=== PATIENT | male | born 1980 | race Caucasian/White ===

== ENCOUNTER 2019-01-02 10:36 | Emergency (ER) | payer OTHER ==
--- NOTE | 2019-01-02 11:03 | RAD ---
XR Chest 1 View Portable HISTORY: Chest pain COMPARISON: None FINDINGS: The heart size is normal. The lungs are well expanded without focal areas of consolidation, pneumothorax or pleural effusions. IMPRESSION: No radiographic evidence of acute cardiopulmonary process.
[2019-01-02] MEDS ORDERED: Nitroglycerin 0.4 MG TAB 1 EACH ONE (11:08)
[2019-01-02] MEDS ORDERED: Aspirin Chewable 81 MG TAB ONE (11:08)
[2019-01-02 11:19] LABS: PTT 28.4 SEC (22.9-36.1); Prothrombin Time 12.8 SEC (12.0-14.7)
[2019-01-02 11:29] LABS: Hemoglobin 15.7 g/dL (14.0-18.0); Mean Corpuscular HGB CONC 33.7 g/dL (32.0-36.0); Mean Corpuscular Hemoglobin 30.5 pg (27.0-31.0); Mean Corpuscular Volume 90.4 fL (78.0-98.0); Mean Platelet Volume 7.9 fL (7.4-10.4); Platelet Count 196 thou/uL (130-400); RBC Distribution Width 12.2 % (11.5-14.5); Red Blood Cell (RBC) Count 5.15 mill/uL (4.70-6.10); White Blood Cell (WBC) Count 7.3 thou/uL (4.8-10.8)
[2019-01-02 11:31] LABS: ALT (SGPT) 24 U/L (8-55); AST (SGOT) 19 U/L (5-34); Albumin 4.2 g/dL (3.5-5.0); Alkaline Phosphatase 54 U/L (40-150); Anion Gap 14 mmol/L (10-20); BUN (Urea Nitrogen) 6 mg/dL (8.9-20.6); Bilirubin, Total 0.3 mg/dL (0.2-1.2); Calc. Creatinine Clearance 0 mL/min (70-130); Calcium 8.8 mg/dL (7.8-10.44); Carbon Dioxide 22 mmol/L (22-29); Chloride 109 mmol/L (98-107); Estimated GFR-MDRD Greater than 90; Globulin 2.6 g/dL (2.4-3.5); Glucose 107 mg/dL (70-105); Potassium 3.9 mmol/L (3.5-5.1); Protein, Total 6.8 g/dL (6.0-8.3); Sodium 141 mmol/L (136-145)
[2019-01-02 11:38] LABS: Band 3 % (5-11); Eosinophils 1 % (0-10); Lymphocytes 27 % (21-51); MDiff Complete? YES; Monocytes 7 % (0-10); Neutrophil 60 % (42-75); Platelet Morphology Comment Appears Adequate; Reactive Lymphocytes 2 % (0-10)
[2019-01-02] MEDS ORDERED: Ketorolac Tromethamine 30 MG/ML VIAL ONE (18:44)
== END 2019-01-02 12:55 | disposition short-term general hospital (02) ==
LOC: MADERS 10:36
DX: R07.9 Chest pain, unspecified (principal); F17.210 Nicotine dependence, cigarettes, uncomplicated
CPT/HCPCS: 71045; 80053; 83880; 84484; 85025; 85610; 85730; 93005; 94760; J1885